=== PATIENT | male | born 1955 | race Caucasian/White ===

== ENCOUNTER 2018-07-28 14:11 | Emergency (ER) | payer BC, SELFPAY ==
[2018-07-28 14:34] VITALS: BP 169/107; PULSE 78; RESP 16; TEMP 36.6; O2SAT 97
[2018-07-28 14:38] LABS: Bilirubin Negative (Negative); Blood Trace-lysed (Negative); Clarity Clear; Glucose Negative (Negative); Ketones Negative (Negative); Leukocyte Esterase Negative (Negative); Nitrite Negative (Negative); Specific Gravity 1.015 (1.005-1.025); Urobilinogen 0.2 EU/dL (Up TO 0.2); pH 5.5 (5-8)
--- NOTE | 2018-07-28 14:44 | DI.CT_ITS ---
SYMPTOM/DIAGNOSIS: RT FLANK AND GROIN PAIN RENAL COLIC CT: Renal colic CT was performed according to protocol. There are no priors for comparison. The lung bases are clear. Lack of IV contrast does limit evaluation of the abdominal and pelvic organs. The liver is normal in size. There are innumerable round hypodense lesions scattered throughout the liver likely reflecting cysts. The gallbladder is negative. There is no biliary ductal dilatation. The pancreas is unremarkable. The spleen is unremarkable. Incidental note is made of an accessory spleen within the hilum. There is a 3.9 cm. hypodense right adrenal mass. The left adrenal gland appears unremarkable. There is a 5 mm. stone at the right ureteropelvic junction causing mild hydronephrosis. There is a non obstructing 5 mm. stone in the upper pole of the right kidney. The left kidney shows no evidence of nephrolithiasis or hydronephrosis. The urinary bladder is intact. The prostate gland appears enlarged. The abdominal aorta is of normal caliber. No significant abdominal or pelvic adenopathy, ascites or pneumoperitoneum is seen. The bowel shows no evidence of obstruction or inflammation. There is a normal appendix present. There is ankylosis of the sacroiliac joints. Degenerative changes are present throughout the spine. IMPRESSION: 1. 5 mm. right UPJ stone causing mild hydronephrosis. 2. Right nephrolithiasis. 3. 4 cm. right adrenal mass which may represent an adenoma. Follow up as clinically appropriate. 4. Multiple hypodense lesions seen within the liver, likely reflecting cysts. Follow up as clinically appropriate. 5. Prostatic hypertrophy. Urology consult may be obtained.
[2018-07-28] MEDS: Normal Saline 1,000 ML 1000 ML IV (14:50)
[2018-07-28 14:52] LABS: Bacteria Negative HPF (Negative); C & S Indicated? No; Casts Negative LPF (Negative); Crystals Negative HPF (Negative); Epithelial Cells Negative HPF (Negative); Mucus Negative (Negative); RBC 0-2 (0-2); WBC Negative HPF (0-5)
--- NOTE | 2018-07-28 14:58 | W.ED.GENAD ---
Discharge Plan Disposition Patient Disposition: HOME Condition: Improving Discharge Details Chief Complaint: Abd Prob Clinical Impression: Calculus of proximal right ureter Primary Care Provider: Alonso Ricks ED Provider: Fermin Hutchins Home Meds and New Rx's Prescriptions: New tamsulosin [Flomax] 0.4 mg capsule 0.4 mg PO DAILY Qty: 5 RF: 0 hydrocodone-acetaminophen 5-325 mg tablet 1 tab PO Q6H PRN (Reason: breakthrough pain) Qty: 5 RF: 0 Continued amlodipine 5 mg tablet 5 mg PO DAILY Qty: 90 RF: 3 ibuprofen 200 MG capsule 3 tab PO DAILY PRN RF: 0 Discharge Instructions Additional Instructions: We will have our care management team follow-up with urology to make you an appointment clinic clinic. Screen your urine for kidney stone. Continue to push fluids with liberal hydration by mouth. May use ibuprofen 800 mg every 8 hours, with food for pain. May use the provided hydrocodone/Vicodin as needed for breakthrough pain or may use Tylenol as we discussed Please take Flomax daily while having symptoms of kidney stone. This medication can cause mild lightheadedness when rising quickly from a seated position Return if you develop a fever, increasing pain, or any other acute concern Medical Decision Making 63-year-old male presents from home with abrupt onset last night of right flank pain is now radiating to his right groin. It is intermittent and colicky in nature. Is not had a fever. He arrives afebrile and improved, declines initial offer of analgesia. He is in some discomfort though and hypertensive at 169/100. Most consistent with right-sided renal colic but must exclude underlying mass, bowel obstruction, aortic pathology. Patient had IV access established, referred for laboratory testing with urinalysis as well as CT scan. Hematuria present. Unremarkable CBC chemistry is only notable for total bili of 1.4. LFTs unremarkable. Patient improved with fluids and ketorolac. CT scan reveals a right sided 4.6 mm proximal ureteral calculus. Also noted is of enlarged prostate of which the patient is aware. He is tolerating liquids and solids by mouth, pain is well controlled. Will place on Flomax. He is a good candidate for outpatient management but we will refer to Dr. Vega in urology for follow-up. Patient understands return precautions. He is provided with a small number of narcotic analgesic for breakthrough pain and consented for same prior to discharge. HPI General Mode of arrival: ambulatory. Date/Time Provider Initiated Documentation: 07/28/18 14:24. Limitations to Documentation: no limitations. Information obtained by: patient and family. History of Present Illness 63 year old M presents to the emergency department with the chief complaint of Right back and flank pain that began 1, described as moderate, Quality is described as stabbing, and is localized to the back. Patient abdomen. Patient started experiencing this hour(s) and it has been intermittent. No relieving factors improve symptom(s), No exacerbating factors reported . Patient notes no other symptoms.. Patient did receive the following treatments prior to arrival, none Related Data Home Medications Medication Instructions Recorded Confirmed ibuprofen 3 tab PO DAILY PRN 07/16/12 07/28/18 amlodipine 5 mg tablet 5 mg PO DAILY #90 tab 03/29/18 07/28/18 hydrocodone-acetaminophen 1 tab PO Q6H PRN #5 tab 07/28/18 tamsulosin [Flomax] 0.4 mg PO DAILY #5 cap 07/28/18 Previous Rx's Medication Instructions Recorded amlodipine 5 mg tablet 5 mg PO DAILY #90 tab 03/29/18 hydrocodone-acetaminophen 1 tab PO Q6H PRN #5 tab 07/28/18 tamsulosin [Flomax] 0.4 mg PO DAILY #5 cap 07/28/18 Allergies Allergy/AdvReac Type Severity Reaction Status Date / Time Penicillins Allergy Intermediate HIVES Unverified 07/28/18 14:38 General Stated Complaint: Abd Prob NOLVIA: 3 Review of Systems Review of Systems Denies fall or injury. No significant change to urine. No fever or vomiting 6 systems reviewed and otherwise negative [facility] Surgical History Arthroplasty of knee Colonoscopy - IV Sedation (02/26/15) Colonoscopy - MAC Vasectomy Family History Mother Essential hypertension Heart disease Hyperlipidemia Myocardial infarction Asthma Father Asthma Sister No problems noted. Brother No problems noted. Sister No problems noted. Brother No problems noted. Son No problems noted. Daughter No problems noted. Daughter No problems noted. Daughter No problems noted. Social History Smoking/Tobacco Use Status: Never Second Hand Exposure: Yes Alcohol Intake: current Alcohol Intake frequency: 0-2 drinks per day Alcohol type: wine Drug use: Never Substance use type: does not use Household members: spouse Duration: 30-45 minutes/day Frequency: 3-4 times per week Lynn/Mormon: No preference Special lynn needs: No Exam Narrative Exam Narrative: GEN: awake, alert, oriented 3. Pleasant, well groomed, interactive. HEAD: Normocephalic, atraumatic ENT: Mucous membranes moist, oropharynx unremarkable, External ear exam unremarkable EYES: PERRL, EOMI NECK: Full ROM, no MARY, no menigismus CHEST/RESP: Nontender, clear to auscultation bilateral, no wheeze/rhonchi/rales CARDIOVASCULAR: RRR, no murmur, rub mina. 2+ Rad pulse bilateral ABDOMEN: Soft, minimally tender right upper and mid abdomen to palpation without rebound or guarding, no mass. +Bowel sounds EXT: Full ROM, no edema, no rash Neuro: Grossly normal neurologic exam, conversant, interactive. Psych: Speech fluent, thoughts congruent, affect normal Course Vital Signs Temperature 36.6 C 07/28/18 14:34 Pulse 78 07/28/18 14:34 Respiratory Rate 16 07/28/18 14:34 Blood Pressure 169/107 H 07/28/18 14:34 Pulse Oximetry 97 07/28/18 14:34 Temperature 36.6 C 07/28/18 14:34 Temperature Source Skin 07/28/18 14:34 Pulse 78 07/28/18 14:34 Respiratory Rate 16 07/28/18 14:34 Respiratory Effort Non-Labored 07/28/18 14:34 Blood Pressure 169/107 H 07/28/18 14:34 Blood Pressure Position Sitting 07/28/18 14:34 Pulse Oximetry 97 07/28/18 14:34 Oxygen Delivery Method Room Air 07/28/18 14:34 Oxygen Flow Rate 0 07/28/18 14:34 Pain Level 5 07/28/18 14:34 Lab/Test Results Lab/Test Results: Laboratory Tests Range/Units 07/28/18 14:25 Urine Color (Yellow) Yellow Urine Clarity Clear Urine pH (5-8) 5.5 Ur Specific [place] (1.005-1.025) 1.015 Urine Protein (Negative) mg/dL Negative Urine Ketones (Negative) mg/dL Negative Urine Blood (Negative) Trace-lysed H Urine Nitrite (Negative) Negative Urine Bilirubin (Negative) Negative Urine Urobilinogen (Up TO 0.2) EU/dL 0.2 Ur Leukocyte Esterase (Negative) Negative Urine RBC (0-2) 0-2 Urine WBC (0-5) HPF Negative Ur Epithelial Cells (Negative) HPF Negative Urine Crystals (Negative) HPF Negative Urine Bacteria (Negative) HPF Negative Urine Casts (Negative) LPF Negative Urine Mucus (Negative) Negative Ur Culture Indicated? No Urine Glucose (Negative) mg/dL Negative
[2018-07-28 15:10] LABS: Abs Immature Grans 0.01 k/cumm (0.0-0.09); Absolute Basophil Count 0.02 k/cumm (0.0-0.2); Absolute Eosinophil Count 0.04 k/cumm (0.0-0.7); Absolute Lymphocyte Count 0.58 k/cumm (1.2-3.4); Absolute Monocyte Count 0.37 k/cumm (0.11-0.7); Absolute Neutrophil Count 5.36 k/cumm (1.2-6.7); Basophils % 0.3; Eosinophils % 0.6; HCT 44.4 % (40.0-50.0); HGB 15.9 g/dL (13.5-17.5); Immature Grans % 0.2; Lymphocytes % 9.1; Mean Corp. HGB Concentration 35.8 g/dL (32.0-36.0); Mean Corpuscular Hemoglobin 31.1 pg (27.0-33.0); Mean Corpuscular Volume 86.9 fL (80-95); Mean Platelet Volume 9.2 fL (8.0-11.0); Monocytes % 5.8; Platelet Count 172 x1000/uL (130-400); RBC 5.11 m/cumm (4.50-6.00); RBC Distribution Width 12.9 % (11.8-14.1); White Blood Cell Count 6.38 k/cumm (4.4-10.8)
[2018-07-28 15:20] LABS: ALT 44 U/L (12-78); AST 20 U/L (15-37); Alkaline Phosphatase 47 U/L (46-116); Anion Gap 11.8 mmol/L (3-11); BUN 16 mg/dL (7-18); Bilirubin, Total 1.4 mg/dL (0.2-1.0); CO2 26.2 mmol/L (21.0-32.0); CREATININE 1.04 mg/dL (0.70-1.30); Calcium 8.9 mg/dL (8.5-10.1); Chloride 102 mmol/L (98-107); Glucose 113 mg/dL (70-100); Potassium 3.9 mmol/L (3.5-5.1); Sodium 140 mmol/L (136-145); Total Protein 7.3 g/dL (6.4-8.2)
--- NOTE | 2018-07-28 15:48 | DI.VRAD_ITS ---
EXAM: CT Abdomen and Pelvis Without Contrast EXAM DATE/TIME: 07/28/2018 2:45 PM CLINICAL HISTORY: 63 years old, male; Signs and symptoms; Other: Right flank and groin pain TECHNIQUE: Imaging protocol: Axial computed tomography images of the abdomen and pelvis without contrast. Coronal and sagittal reformatted images were created and reviewed. Radiation optimization: All CT scans at this facility use at least one of these dose optimization techniques: automated exposure control; mA and/or kV adjustment per patient size (includes targeted exams where dose is matched to clinical indication); or iterative reconstruction. COMPARISON: No relevant prior studies available. FINDINGS: Lower thorax: No acute findings. ABDOMEN: Liver: Multiple hepatic cysts. Largest 2.2 cm Gallbladder and bile ducts: Normal. No calcified stones. No ductal dilation. Pancreas: Normal. No ductal dilation. Spleen: Normal. No splenomegaly. Adrenals: Right adrenal adenoma 3.4 cm Kidneys and ureters: 4.6 millimeter proximal RIGHT ureteral calculus causes dilatation of the RIGHT ureter, and RIGHT collecting system. The RIGHT kidney is edematous . Nonobstructing right renal calculus Stomach and bowel: Normal. No obstruction. No mucosal thickening. Appendix: No evidence of appendicitis. PELVIS: Bladder: Unremarkable as visualized. Reproductive: The prostate is enlarged, greater than 6 cm. Recommend urology consult. ABDOMEN and PELVIS: Intraperitoneal space: Normal. No free air. No significant fluid collection. Bones/joints: No acute fracture. No dislocation. Soft tissues: Unremarkable. Vasculature: Normal. No abdominal aortic aneurysm. Lymph nodes: Normal. No enlarged lymph nodes. IMPRESSION: 1. 4.6 millimeter proximal RIGHT ureteral calculus causes dilatation of the RIGHT ureter, and RIGHT collecting system. The RIGHT kidney is edematous . 2. The prostate is enlarged, greater than 6 cm. Recommend urology consult. Dictated and Authenticated by: Serene Friend MD. Ordering:WINSTON Christensen MD
[2018-07-28] MEDS: Ketorolac 30 MG/ML VIAL IVP (15:54)
[2018-07-28] MEDS: Tamsulosin 0.4 MG CAPCR PO (15:54)
[2018-07-28 16:24] VITALS: BP 158/98; PULSE 75; RESP 16; TEMP 36.6; O2SAT 99
--- NOTE | 2018-07-29 09:51 | PDOC.ERCMPRO ---
Care Management Progress Note 07/29-Dr. Hutchins requested assistance with a Urology f/u for R proximal kidney stone. Referral faxed to [facility] this am.
== END 2018-07-28 16:25 | disposition home or self-care (01) ==
PROVIDERS: Emergency Provider Emergency Medicine; PCP Emergency Medicine
DX: N20.1 Calculus of ureter (principal); I10 Essential (primary) hypertension
CPT/HCPCS: 36415; 80053; 96361; 96374; 99284; 74176; 81003; 81015; 85025; J1885

== ENCOUNTER 2018-08-26 01:00 | Outpatient (CLI) | payer BC, SELFPAY ==
--- NOTE | 2018-08-26 14:50 | DI.US_ITS ---
SYMPTOMS/DIAGNOSIS: MONITORING HYDRONEPHROSIS AND KIDNEY STONES, RIGHT SIDE, N13.30, N20.0 RENAL ULTRASOUND: The kidneys are normal in size and shape. There is a suspected right mid pole renal calcification. No evidence of hydronephrosis on either side. No renal mass seen. Urinary bladder shows prevoid and postvoid bladder volume 191 cc and 18 cc, respectively. The prostate volume estimated at 54 cc. CONCLUSION: No evidence of obstruction. Presumed right mid pole renal nonobstructing calculus.
== END 2018-08-26 01:20 ==
PROVIDERS: PCP Emergency Medicine; Visit Provider Nurse Practitioner Gerontology
DX: N13.30 Unspecified hydronephrosis (principal); N20.0 Calculus of kidney
CPT/HCPCS: 76770

== ENCOUNTER 2019-01-15 07:59 | Outpatient (CLI) | payer OTHER, SELFPAY ==
[2019-01-17 11:35] LABS: Renin Activity, Plasma <0.6 ng/mL/h
[2019-01-17 12:09] LABS: Metanephrine, Free <0.20 nmol/L (<0.50); Normetanephrine, Free 0.31 nmol/L (<0.90)
== END 2019-01-15 08:19 ==
PROVIDERS: PCP Emergency Medicine; Visit Provider Internal Medicine Endocrinology, Diabetes & Metabolism
DX: E27.8 Other specified disorders of adrenal gland (principal)
CPT/HCPCS: 36415; 82533; 82088; 83835; 84244

== ENCOUNTER 2019-05-07 15:36 | Outpatient (CLI) | payer OTHER, SELFPAY ==
--- NOTE | 2019-05-07 14:49 | DI.RAD_ITS ---
EXAM: XR ABDOMEN FLAT PLATE INDICATION: MONITORING KIDNEY STONE, HX OF RENAL CALCULI, [id number]. COMPARISON: CT renal colic wo from 07/28/2018 TECHNIQUE: 2D digital imaging was performed. FINDINGS: No urinary tract calculi are identified. The bowel gas pattern is nonspecific. There are degenerati ve changes seen in the spine. IMPRESSION: No urinary tract calculi.
== END 2019-05-07 15:56 ==
PROVIDERS: PCP Emergency Medicine; Visit Provider Nurse Practitioner Gerontology
DX: Z87.442 Personal history of urinary calculi (principal)
CPT/HCPCS: 74018

== ENCOUNTER 2019-05-13 13:38 | Outpatient (REF) | payer OTHER, SELFPAY ==
[2019-05-17 18:14] LABS: Source: Passed Stone
== END 2019-05-13 13:58 ==
LOC: LBN 13:38
PROVIDERS: PCP Emergency Medicine; Visit Provider Urology
DX: N20.0 Calculus of kidney (principal)
CPT/HCPCS: 82365

== ENCOUNTER 2019-07-08 01:53 | Outpatient (CLI) | payer OTHER, SELFPAY ==
--- NOTE | 2019-07-08 08:15 | DI.US_ITS ---
EXAM: US RENAL CLINICAL HISTORY: monitor known stone,KIDNEY STONE RT, N20.0. TECHNIQUE: Mclean scale, color and spectral Doppler were used. COMPARISON: US renal from 08/26/2018 FINDINGS: Renal size in cm: Right: 9.7 left: 10.9 Echogenicity: Normal. Hydronephrosis: No. Cyst or mass: No. Nephrolithiasis: No. Other findings: None. Bladder:Normal. No bladder wall thickening. Ureteral jets: Right: Visualized and unremarkable. Left: Visualized and unremarkable. Prevoid vol:91 cc Postvoid vol:11 cc Prostate: 34 cc DOPPLER FINDINGS: Symmetric blood flow to the kidneys. IMPRESSION: No evidence of nephrolithiasis or hydronephrosis. DATA REPOSITORY:
== END 2019-07-08 02:13 ==
PROVIDERS: PCP Emergency Medicine; Visit Provider Urology
DX: N20.0 Calculus of kidney (principal)
CPT/HCPCS: 76770

== ENCOUNTER 2021-03-31 19:52 | Outpatient (REF) | payer MEDICARE, BC, SELFPAY ==
[2021-04-01 17:40] LABS: PSA, Screening 1.7 ng/mL (0.0-4.5)
== END 2021-03-31 19:53 | disposition home or self-care (01) ==
LOC: LBN 19:52
PROVIDERS: PCP Emergency Medicine; Visit Provider Emergency Medicine
DX: Z12.5 Encounter for screening for malignant neoplasm of prostate (principal); N40.0 Benign prostatic hyperplasia without lower urinary tract symptoms
CPT/HCPCS: 84153

== ENCOUNTER 2021-08-09 02:06 | Emergency (ER) | payer OTHER, SELFPAY ==
[2021-08-09 02:07] VITALS: BP 158/109; PULSE 88; RESP 16; TEMP 36.6; O2SAT 97
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
[2021-08-09 02:18] VITALS: BP 162/107; PULSE 95; RESP 16; O2SAT 100
== END 2021-08-09 02:24 | disposition home or self-care (01) ==
LOC: ER 02:13
PROVIDERS: Emergency Provider Student in an Organized Health Care Education/Training Program; PCP Nurse Practitioner Family
DX: S00.03XA Contusion of scalp, initial encounter (principal); S80.12XA Contusion of left lower leg, initial encounter; V89.2XXA Person injured in unspecified motor-vehicle accident, traffic, initial encounter; Y99.0 Civilian activity done for income or pay
CPT/HCPCS: 99282; 99283

== ENCOUNTER → 2023-01-03 01:14 | Outpatient (CLI) | payer MEDICARE, SELFPAY ==
--- NOTE | 2023-01-03 10:46 | DI.RAD_ITS ---
Exam(s) XR FOOT LT COMPLETE EXAM: XR FOOT LT COMPLETE CLINICAL HISTORY: Left foot pain,m79.672. TECHNIQUE: 2D digital imaging was performed. COMPARISON: No exams were available for comparison FINDINGS: 3 views No evidence of acute fracture nor diastasis of the Court destiny joint. MTP joints appear unremarkable. There is soft tissue swelling lateral to head of the 5th metatarsal. No radiopaque foreign body in this region and no evidence of erosion or osteomyelitis of the 5th metatarsal head proximal phalanx. Moderate size inferior calcaneal spur noted. In these 0 fight and calcification posteriorly at the i nsertional aspect of the Achilles tendon on the posterior calcaneus. IMPRESSION: Soft tissue swelling lateral to the head of the 5th metatarsal. No osseous findings at this level. No evidence of osteomyelitis DATA REPOSITORY: RADIATION DOSE DELIVERED:
== END ==
PROVIDERS: PCP Nurse Practitioner Family; Visit Provider Podiatrist
DX: M79.672 Pain in left foot (principal)
CPT/HCPCS: 73630

== ENCOUNTER → 2023-01-25 15:23 | Outpatient (CLI) | payer MEDICARE, SELFPAY ==
--- NOTE | 2023-01-25 14:20 | DI.CT_ITS ---
Exam(s) CT CHEST W EXAM: CT CHEST W CLINICAL HISTORY: Scapular mass (right), mass of skin, R22.9. TECHNIQUE: Multi planar reconstructions were performed. CONTRAST MATERIAL: Omnipaque 350; 75 cc COMPARISON: CT CT renal colic wo from 07/28/2018 FINDINGS: CHEST: LUNGS: No infiltrates nor pleural effusions nor ominous pulmonary nodules. There no findings in the trachea and mainstem bronchi. No bronchiectasis. MEDIASTINUM: There is no hilar nor mediastinal adenopathy. Visualized thyroid unremarkable. CARDIAC: Heart size is normal. There is no pericardial effusion.Diameter of the ascending thoracic a ileana is enlarged, measuring 4 cm. No dissection. Diameter of the thoracic aortic arch is upper norm al and diameter of the descending thoracic aorta is upper normal. Incidentally noted is an anatomic variant with independent origin of the left vertebral artery off the aortic arch. VISUALIZED UPPER ABDOMEN:Multiple cysts again noted throughout the liver. Right adrenal gland mass i s again noted measuring 3.4 by 2.7 cm, unchanged. Left adrenal gland remains unremarkable. OSSEOUS: No fractures. No significant osseous lesions. OTHER: There is a fat containing soft tissue mass over the posterior aspect of the chest medial to th e scapula involving the trapezius musculature. This has both fat and solid components measuring appr oximately 8 cm wide by 2.3 cm AP by 15 cm craniocaudal. There is no adjacent bone destruction in the spinous process is of the thoracic vertebrae nor in the medial aspect of the scapula. IMPRESSION: 1. No significant lung findings, pleural effusions, nor intrathoracic adenopathy 2. There is a large mixed fatty-solid mass in the posterior extra thoracic fat tissues measuring 8 cm x 15 cm x 2.3 cm within the posterior musculature interposed between the spinous process is and the medial aspect of the scapula. Cannot assume that this is a benign lipoma. If this has recently incr eased in size than 1st consideration would be to rule out malignancy. 3. Unchanged 3.4 x 2.7 cm right adrenal gland nodule which is probably an adenoma, given that it has not changed in size from 2019. RADIATION DOSE DELIVERED: 419.32mGy.cm Total DLP DATA REPOSITORY: All CT scans at this facility are submitted to the National Radiology Data Registry (NRDR) Dose Index Registry (DIR) with the [employer] (A[employer]). RADIATION OPTIMIZATION: All CT scans at this facility use at least one of these dose optimization te chniques: automated exposure control; mA and/or kV adjustment per patient size (includes targeted exa ms where dose is matched to clinical indication); or iterative reconstruction.
[2023-01-25 14:57] LABS: Estimated GFR 81.98 (mL/min/1.73m2)
[2023-01-25] MEDS: Omnipaque 350 MG/ML 100 ML BTL IJ (15:09)
[2023-01-25] MEDS: Normal Saline - Diluent 50 ML VIAL IJ (15:09)
== END ==
PROVIDERS: PCP Nurse Practitioner Family; Visit Provider Nurse Practitioner Family
DX: R22.2 Localized swelling, mass and lump, trunk (principal)
CPT/HCPCS: 71260; 82565; J3490

== ENCOUNTER → 2023-01-26 10:26 | Outpatient (BNVA) | payer MEDICARE, SELFPAY | PROVIDERS: PCP Nurse Practitioner Family; Referring Provider Nurse Practitioner Family; Visit Provider Surgery | DX: D17.21 Benign lipomatous neoplasm of skin and subcutaneous tissue of right arm | CPT/HCPCS: 10021; 99203; 99214 ==

== ENCOUNTER 2023-01-26 11:09 | Outpatient (REF) | payer MEDICARE, SELFPAY ==
--- NOTE | 2023-01-26 11:00 | SOFT_PTH ---
PATIENT: John Pang JR LOC: N U#:[id number] AGE/SX: 67/M ROOM: RE01/26/[address]: Kaylen Ernst MD : 1955 BED: DIS: 01/26/2023 SPEC #: [id number] RECD: 01/26/23 11:39 STATUS: YENIFER REQ #: [id number] JUAN: 01/26/23 11:[address]: Kaylen Ernst DEPT: Surgical Specimen RECD BY: Nidia Barajas ENTERED: 01/26/23 11:40 SP TYPE: SOFT OTHR DR: Javad Garcia, CYNTHIA Tissues: 1 - SOFT TISSUE MISC (INC. LIPOMA) Procedures: GROSS AND MICRO LEVEL 3 Comments: [id number]
== END 2023-01-26 11:10 | disposition home or self-care (01) ==
LOC: LBN 11:09
PROVIDERS: PCP Nurse Practitioner Family; Visit Provider Surgery
DX: D17.9 Benign lipomatous neoplasm, unspecified (principal)
CPT/HCPCS: 88304; 88305

== ENCOUNTER 2023-03-28 09:26 | Day surgery (SDC) | payer MEDICARE, SELFPAY ==
[2023-03-28] VITALS (11 sets, daily range): BP systolic 112–145; BP diastolic 77–107; PULSE 56–74; RESP 10–18; TEMP 36.1–36.7; O2SAT 96–99; BMI 23.8
--- NOTE | 2023-03-28 07:05 | HPE_ITS ---
Date of service: 03/28/23 Time of Service: 10:54 Assessment and Plan Assessment and plan (1) Lipoma of back: Status: Acute Assessment and plan: Mr. Pang is a pleasant 67-year-old gentleman with a mass on his right upper back. Core needle biopsy was consistent with Benign Lipoma. We discussed excision of the lipoma today. Risks, benefits and complications were reviewed with him today in same-day surgery. Complications include but are not limited to bleeding, infection, seroma, hematoma, wound dehiscence and recurrence of the lipoma. His questions were entertained and answered to his satisfaction and he wished to proceed. After conversation he had a good understanding of the procedure as well as the possible complications and felt comfortable signing the consent. Proceed with excision of lipoma of right upper back. History of Present Illness Narrative: Mr. Pang is a very pleasant 67-year-old gentleman who is here to have a Lipoma removed from his Upper back. He states that he has had some discomfort in the area especially when backpacking or when riding his bike for long periods of time. It does not usually hurt with lifting. He was doing some yoga with his when she went to touch his back and shoulder to help with oppose and she noted a mass. He did not noticed it before. He went to see his primary care physician who ordered a stat CT scan of his chest. The CT scan noted a mass with both fat and solid components measuring 8 x 15 x 2.3 cm. There is no adjacent bone destruction in the spinous process. It involves the trapezius muscle. The upper abdomen showed a right adrenal gland at 3.4 x 2.5 cm this has been there before for and is unchanged. He has multiple cysts throughout his liver. The patient has not noted any changes of the skin. Core needle biopsy confirmed a benign lipoma. He is here today to have it removed. Kayden coronel has no new complaints. they have just returned from vacation in [place]. Review of Systems Constitutional Constitutional: Denies fever(s), Denies headache(s) and Denies weight loss Eyes Eyes: Denies change in vision ENT Ears, Nose, Mouth, and Throat: Denies dysphagia, Denies headache(s) and Denies hoarseness Cardiovascular Cardiovascular: Denies chest pain, Denies irregular heart rhythm, Denies pa lpitations and Denies dyspnea Respiratory Respiratory: Denies cough and Denies dyspnea Gastrointestinal Gastrointestinal: Reports as per HPI and Denies dysphagia Genitourinary Genitourinary: Denies difficulty urinating, Denies dysuria and Denies urinary incontinence Musculoskeletal Musculoskeletal: Reports system reviewed and no additional complaints, except as documented Integumentary/Breasts Skin/Breast: Reports as per HPI Neurologic Neurologic: Reports system reviewed and no additional complaints, except as documented and Denies headache(s) Psychiatric Psychiatric: Reports system reviewed and no additional complaints, except as documented Endocrine Endocrine: Reports system reviewed and no additional complaints, except as documented and Denies palpitations Hematologic/Lymphatic Hematologic/Lymphatic: Reports system reviewed and no additional complaints, except as documented Allergic/Immunologic Allergic/Immunologic: Reports system reviewed and no additional complaints, except as documented PFSH All Active Problems Lipoma of back (Acute) Mass of skin (Acute) Benign hypertension (Acute 05/06/13) Enlarged prostate on rectal examination (Acute 11/11/14) Knee pain (Acute) left knee DJD; ACL Low back pain (Acute) Old anterior cruciate ligament disruption (Acute) right; repaired Osteoarthritis (Acute) BILATERAL KNEES Palpitations (Acute) bigeminy 12/07 EKG PVC's without symptoms Tinnitus, left (Acute 11/11/14) Adrenal mass (Acute) White coat syndrome with diagnosis of hypertension (Acute) Mass of foot (Acute) Tailor's bunion of left foot (Acute) Achilles tendon contracture, bilateral (Acute) Capsulitis of left foot (Acute) Medical History Kidney stone on right side Surgical History History of bunionectomy left toe S/P reconstruction of ligament of knee ACL, MCL, and meniscus. ~1974 H/O arthroscopy of right knee Vasectomy Colonoscopy - MAC 2005-neg Colonoscopy - IV Sedation (02/26/15) DR.TERRY ADRIAN Family History Mother , AGE 86 Essential hypertension Heart disease Hyperlipidemia Myocardial infarction Asthma Father , age 88 Asthma Sister No problems noted. Brother No problems noted. Sister No problems noted. Brother No problems noted. Son No problems noted. Daughter No problems noted. Daughter No problems noted. Daughter No problems noted. Social History Smoking/Tobacco Use Status: Never Second Hand Exposure: Yes Smoking risk assessment performed?: Yes Alcohol Intake: current Alcohol Intake frequency: a few times a week Alcohol type: wine Drug use: Occasionally Substance use type: marijuana Household members: spouse Housing: house Communication Needs: Corrective Lenses Do you need help understanding health information?: Never Pets and animals: Yes Pets and animals: cat(s) Sexually active: Yes Do you think of yourself as: straight/heterosexual Current gender identity: male What is your relationship status?: How often do you talk on the phone with friends or family?: once per week How often do you get together with friends or relatives?: once per week Do you belong to any clubs or organized social groups?: no Panel score (0-1 are the most socially isolated patients): 1 What type of physical activity do you participate in: walking, aerobic and bicycling Duration: 15-30 minutes/day Frequency: 3-4 times per week Seatbelt use: always Helmet use: Yes Helmet use: always Drive 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 Do you feel safe at home: Yes Do you feel safe in your relationship?: Yes Victim of physical abuse: No Victim of emotional abuse: No Victim of sexual abuse: No Would you like helpful sources: No Meds Allergies and Home Medications Allergies Allergy/AdvReac Type Severity Reaction Status Date / Time Penicillins Allergy Intermediate HIVES Verified 03/28/23 09:46 Home Medications Medication Instructions Recorded Confirmed Type amlodipine 5 mg tablet 5 mg PO DAILY #90 tabs 02/14/23 03/28/23 Rx Exam Const General: cooperative, comfortable and no acute distress Orientation: alert and oriented x3 HENMT Head: normocephalic and atraumatic Eyes Pupils: PERRL Resp Effort & Inspection: normal respiratory effort Auscultation: clear to auscultation bilaterally Cardio Rate: regular rate Rhythm: regular rhythm Heart Sounds: no gallops, no murmurs and no rubs GI Inspection: normal to inspection Palpation: soft, no hepatosplenomegaly, no hernias and nontender Auscultation: normal bowel sounds General: deferred Skin Other: Soft mass in the Right upper back Time Spent Time spent with Patient: <40 minutes Time was spent: counseling the patient
--- NOTE | 2023-03-28 07:11 | ROE_ITS ---
Date of service: 03/28/23 Time of Service: 13:30 Operative Note Operative Note DATE OF PROCEDURE: 03/28/23 PRE-OP DIAGNOSIS: Lipoma Right Upper back POST-OP DIAGNOSIS: same PROCEDURE: Excision of lipoma and CARI drain placement SURGEON: Kaylen Ernst SALT MINER: Rohini Calle ANESTHESIA TYPE: Local By Surgeon and General LMA/ETT Refer to Anesthesia Record PATHOLOGY: other (lipoma) COMPLICATIONS: None Patient was transported to: PACU Patient's condition: stable Indications: Mr. Pang is a pleasant 67-year-old gentleman with a mass on his right upper back. Core needle biopsy was consistent with Benign Lipoma. We discussed excision of the lipoma today. Risks, benefits and complications were reviewed with him today in same-day surgery. Complications include but are not limited to bleeding, infection, seroma, hematoma, wound dehiscence and recurrence of the lipoma. His questions were entertained and answered to his satisfaction and he wished to proceed. After conversation he had a good understanding of the procedure as well as the possible complications and felt comfortable signing the consent. Findings: Part of the lipoma was sitting on top of the scapula and part of it was draping over the spinous processes. Part of it was intertwined with the Rhomboid major muscle. Procedure Description: After informed consent was obtained in same-day surgery and the lipoma was marked, the patient was taken to come to the operating room and placed in a supine position on the table. He was then placed under general anesthesia and an LMA was placed without difficulty. The patient was then positioned in a left lateral position with a beanbag underneath his hips and lower back to keep him in that position. Pillows were placed underneath his legs, left axilla was cushioned with a gel pad and his arms were placed on a folded pillow as well. When patient was in a good position and we made sure that there were no pressure points his upper right back past the midline was prepped and draped in a sterile surgical fashion. At this point a timeout was done. The patient's name, date of , procedure to be done, location, allergies to medications, prophylactic antibiotic were reviewed. Fire risk was assessed. Next quarter percent Marcaine mixed with Exparel was injected into the dermis over the palpable lipoma. An incision was made with a 10 blade down to the subcutaneous tissue. Bleeding was controlled using cautery. Cautery was then used to go down through a thin layer of subcutaneous tissue until the lipoma was identified. The trapezius muscle had to be cut in order to get down to the most inferior portion and deepest portion of the lipoma. The lipoma sat on top of the scapula and ran along the spinous process. This part of the lipoma was well-circumscribed and in a capsule. I was able to remove it without much difficulty. I then got to the more superior portion of the lipoma and this unfortunately was very lobulated and intertwined with his trapezius and part of the rhomboid muscles. I was able to tease out most of the lipoma from the muscle. Some of the rhomboids were cut with cautery in order to be able to remove the lipoma. It took about 40 minutes to dissect the entire lipoma out. Once it was removed it was sent to pathology. The lipoma measured 15 x 10 x 2.5 cm. Next the wound was irrigated with some normal saline. Bleeding from the muscle was identified and this was suture-ligated with 2-0 silk. Small bleeders from the muscle or skin were cauterized. Once the area was dry 6 g of Luis were placed into the cavity. Because of the size of the cavity the patient is at high risk of developing a seroma or hematoma so a 10 [place] CARI drain was placed by making a small incision inferiorly and passing the drain through that. It was cut to size and then laid into the cavity. The subcutaneous tissue was then closed with 2-0 Vicryl interrupted sutures followed by another layer of 3-0 Vicryl interrupted sutures. The dermis was closed with 3-0 Prolene interrupted sutures. Mastisol and Steri-Strips were applied over the sutures in order for them to not get caught on his shirts. The drain was secured in place with 2-0 nylon. The skin was then cleaned and dried and a dressing was applied. Instrument, needle and sponge counts were correct at the end of the case. The patient was woken up placed back onto his back extubated and taken back to recovery in stable condition. There were no immediate complications.
--- NOTE | 2023-03-28 07:13 | PDOC.DSDIS_ITS ---
Date of service: 03/28/23 Time of Service: 15:14 Discharge Plan Disposition Patient Disposition: Home Condition: Stable Discharge Details Reason For Visit: lipoma of back Attending Provider: Kaylen Ernst Primary Care Provider: Javad Garcia Home Meds and New Rx's Prescriptions: New hydrocodone-acetaminophen 5-325 mg tablet 1 tab PO Q6H PRNQty: 14 0RF Continued amlodipine 5 mg tablet 5 mg PO DAILY Qty: 90 3RF Discharge Instructions Instructions: Carlin-Ellison Drain Care (GEN) Additional Instructions: Activity at Home after surgery: 1. Make sure you walk at least 4 times per day 2. You should be able to climb a flight of stairs 3. No driving while in pain or taking pain medications 4. No strenuous activity or heavy lifting for 2 weeks Diet, Nutrition, & wound healin. Avoid alcohol until after you are recovered from your surgery 2. Make sure to eat plenty of lean protein (meat, fish, eggs, cottage cheese, beans) 3. Eat a variety of fruits and vegetables. Eat plenty of high fiber foods to avoid constipation. 4. Drink plenty of liquids to stay hydrated and avoid constipation Pain Medications: 1. Tylenol 650mg every 6 hours as needed and Ibuprofen 600 mg every 6 hours as needed. You may alternate between the 2 medications every 3 hours 2. If a narcotic has been prescribed take as directed only for breakthrough pain For Constipation: 1. Take Milk of Magnesia or MiraLax as needed for constipation Other: 1. You may shower daily. Do not scrub the incisions 2. Do not soak the incisions for 1 week 3. You may alternate ice and heat as needed for pain and swelling 4. Please drain the CARI drain daily and as needed and record the drainage. Wound Care: 1. Keep the incisions clean and dry Please call our office if you develop: 1. Fevers >101.5 2. Nausea or Vomiting 3. Worsening pain 4. Redness and thick discharge from the wounds If after hours please call the Hospital at and ask to speak to the on-call surgeon Dr. Ernst's Cell phone: . If I do not answer your call within 30 minutes please call the hospital and have the nutrition services worker physician paged. I may be in a zone. Referrals: Kaylen Ernst MD [ [facility] STAFF PHYSICIAN] - 04/02/23 1:30 pm Activity:: as above Shower/Bathe:: 24 hours Diet:: As Tolerated Discharge Orders Discharge Orders: Discharge Order (Routine); Ordered 03/28/23 Ordered By: Kaylen Ernst DS: Diagnosis Discharge Diagnosis (1) Lipoma of back: Status: Acute Asessment and Plan: The patient is doing well post-op from excision of large lipoma surgery.? He is having no nausea or vomiting. he is tolerating liquids and a snack. The pt is not having any chest pain or SOB.? His pain is adequately controlled. ?HEENT:? no eye pain/drainage/redness/swelling. Mild sore throat ?Cardio- NSR, no chest pain, BP stable- see VS record ?Pulm: no sob or productive cough. No hemoptysis ?Incision- dressing is c/d/i w/ no excessive bleeding or drainage ?I discussed with the patient the findings at the time of surgery and the patient?s progress. ?We reviewed expectations at home; what the patient could expect for recovery time, and in the post-operative period.? We discussed the importance of walking to avoid blood clots and pneumonia.? We discussed and reviewed the patient's post-operative wound care and dressing needs.?? We reviewed their step-shin pain management plan, Rx called to the pharmacy of their choice.? We reviewed activity and limitations-see discharge instructions. We reviewed warning signs, and when to seek medical attention- see d/c instructions.?? Patient was given a postoperative follow-up appointment. Patient verbalized understanding of their postoperative instructions, how do to take care of themselves and their incision, and the pain management plan. Please see discharge instructions.?
[2023-03-28] MEDS: Lactated Ringers 1,000 ML 80 ML IV (10:00)
[2023-03-28] MEDS: Celecoxib 200 MG CAP PO (10:04)
[2023-03-28] MEDS: Gabapentin 300 MG CAP 600 MG PO (10:05)
[2023-03-28] MEDS: Acetaminophen 500 MG TAB 1000 MG PO (10:05)
--- NOTE | 2023-03-28 10:32 | W.ANESPRE ---
General Info Date of Service Date Performed: 03/28/23 Height: 5 ft 10 in Weight: 75.5 kg Body Mass Index (BMI): 23.8 Surgical Procedure: Operation Date: 03/28/23 11:25 Proposed Procedure Side Surgeon p Excision Lipoma Upper Back Right Kaylen Ernst MD Meds Allergies and Home Medications Allergies Allergy/AdvReac Type Severity Reaction Status Date / Time Penicillins Allergy Intermediate HIVES Verified 03/28/23 09:46 Home Medication Medication Instructions Recorded amlodipine 5 mg tablet 5 mg PO DAILY #90 tabs 02/14/23 Current Visit Medications: Current Medications Generic Name Dose Route Start Last Admin Trade Name Freq PRN Reason Stop Dose Admin Acetaminophen 1,000 mg 03/28/23 06:00 03/28/23 10:05 Acetaminophen 500 Mg Tab PO 04/07/23 16:00 1,000 mg PREOP WILLAM Administration Celecoxib 200 mg 03/28/23 06:00 03/28/23 10:04 Celecoxib 200 Mg Cap PO 03/28/23 16:00 200 mg PREOP WILLAM Administration Gabapentin 600 mg 03/28/23 06:00 03/28/23 10:05 Gabapentin 300 Mg Cap PO 03/28/23 16:00 600 mg PREOP WILLAM Administration Ringer's Solution 1,000 mls @ 80 mls/hr 03/28/23 06:00 03/28/23 10:00 IV 04/26/23 23:59 80 mls/hr INFUSION WILLAM Administration Cefazolin Sodium/Dextrose 2 gm in 50 mls @ 100 mls/hr 03/28/23 06:00 Ancef Duplex IVPB 03/28/23 16:00 PREOP WILLAM Ondansetron HCl 4 mg/ Sodium 52 mls @ 200 mls/hr 03/28/23 07:16 Chloride IVPB 04/27/23 07:15 Q6H PRN PRN IV Miscellaneous Supplies 1 each 03/28/23 06:00 Iv Access IV 04/26/23 23:59 DIRECTED WILLAM Sodium Chloride 0 ml 03/28/23 06:00 Normal Saline Flush 10 Ml Syr IV 04/26/23 23:59 PRN PRN Sodium Chloride 0 ml 03/28/23 06:00 Normal Saline 10 Ml Vial IJ 04/26/23 23:59 DIRECTED PRN Sterile Water 0 ml 03/28/23 06:00 Water,Injection,Sterile 10 Ml Vial IJ 04/26/23 23:59 DIRECTED PRN Tramadol HCl 50 mg 03/28/23 07:16 Tramadol 50 Mg Tab PO 04/27/23 07:15 Q6H PRN PRN Pain PFSH Active Problems Active Problems: Problem Status Onset Code Lipoma of back D17.1 Mass of skin R22.9 Benign hypertension 05/06/13 I10 Enlarged prostate on rectal examination 11/11/14 N40.0 Knee pain M25.569 Low back pain M54.5 Old anterior cruciate ligament disruption M23.50 Osteoarthritis M19.90 Palpitations R00.2 Tinnitus, left 11/11/14 H93.12 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 ~1974 H/O arthroscopy of right knee Vasectomy Colonoscopy - MAC 2005-neg Colonoscopy - IV Sedation (02/26/15) DR.TERRY ADRIAN Tobacco Smoking/Tobacco Use Status: Never Passive smoking exposure: Yes Second hand exposure: Yes Alcohol Alcohol Intake: current Alcohol intake frequency: a few times a week Alcohol type: wine Substance Use Substance use: Occasionally Substance use type: marijuana Vital Signs and Lab Results Vital Signs Most Recent Vital Signs in EMR: Most Recent Vital Signs Temp Pulse Resp BP Pulse Ox 36.3 C L 73 18 145/107 H 99 03/28/23 09:30 03/28/23 09:30 03/28/23 09:30 03/28/23 09:30 03/28/23 09:30 Lab Results Blood Type / Crossmatch: No Data to Display Complete Blood Count: No Data to Display Complete Metabolic Panel: No Data to Display Liver Function Panel: No Data to Display Coagulation Panel: No Data to Display Cardiac Panel: No Data to Display Arterial Blood Gas: No Data to Display Venous Blood Gas: No Data to Display Pancreas Panel: No Data to Display Thyroid Panel: No Data to Display Infectious Disease: No Data to Display Blood Cultures: No Data to Display Toxicology Panel: No Data to Display Anesthesia Assessment and Plan Anesthesia History Personal History: No History of Anesthesia Complications Family History: No Family History of Anesthesia Complications Exercise Tolerance Exercise Tolerance: Metabolic Equivalents>4 Pertinent Negatives Pertinent Negatives: No Symptoms of GERD Cardiac & Pulmonary Exam Cardiac Exam: Normal S1/S2 Heart Sounds Pulmonary Exam: Clear Bilateral Breath Sounds Implantable Cardiac Device Does patient have a Pacemaker or an ICD?: No Airway Exam Known Difficult Airway: No Mallampati Class: 1 Mouth Opening: Normal (> 3cm) Thyromental Distance: Greater than 3 cm Neck Range of Motion: Full ROM Neck Circumference: Normal Teeth Condition: Normal Dentition ASA Classification ASA Score: ASA 2 Emergency Case?: No NPO Status NPO Status: NPO Clears >2 hours, Solids >8 hours Anesthesia Plan Resuscitation Status: Full Code Anesthesia Technique: General Anesthesia Airway Planned: Endotracheal Tube Monitors Used: Standard Monitors Preoperative Comments:: lateral positioning. Discussed with Dr. Ernst. Plan is GETA.
[2023-03-28] MEDS: ceFAZolin 2 GM/50 ML BAG IVPB (11:51)
[2023-03-28] MEDS: Bupivacaine LIPOSOME/PF 133 MG/10 ML VIAL IJ (12:46)
[2023-03-28] MEDS: Bupivacaine 0.25% Pres-Free 30 ML VIAL (12:46)
--- NOTE | 2023-03-28 12:55 | SOFT_PTH ---
PATIENT: John Pang JR LOC: [facility] U#:[id number] AGE/SX: 68/M ROOM: RE03/28/[address]: Kaylen Ernst MD : 1955 BED: DIS: 03/28/2023 SPEC #: [id number] RECD: 03/28/23 18:29 STATUS: YENIFER REKimmy #: [id number] JUAN: 03/28/23 12:[address]: Kaylen Ernst DEPT: Surgical Specimen RECD BY: Nidia Barajas ENTERED: 03/28/23 18:30 SP TYPE: SOFT OTHR DR: Javad Garcia, CYNTHIA Tissues: 1 - SOFT TISSUE MISC (INC. LIPOMA) Procedures: GROSS AND MICRO LEVEL 3 Comments: [id number]
[2023-03-28] MEDS: Normal Saline 10 ML VIAL IJ (14:16)
[2023-03-28] MEDS: HYDROmorphone 2 MG/ML SYR IVP ×2 (14:16→14:27)
--- NOTE | 2023-03-28 15:00 | W.ANESPOSTOP ---
Postoperative Evaluation Date, Time and Location Date Performed: 03/28/23 Time Performed: 15:00 Patient Location: Day Surgery Unit Vital Signs Most Recent Imported Vital Signs: Most Recent Vital Signs Temp Pulse Resp BP Pulse Ox 36.1 C L 61 18 120/83 97 03/28/23 14:50 03/28/23 14:50 03/28/23 14:50 03/28/23 14:50 03/28/23 14:50 Pain Score Most Recent Pain Score: Most Recent Pain Score Pain Level 1 03/28/23 14:50 Assessment Mental Status: Awake (Alert & Oriented to Patient Baseline) Airway and Respiratory Function: Patent airway with normal (patient baseline) respiratory exam Cardiovascular Function: Hemodynamically Stable Hydration Status: Adequately Hydrated Nausea & Vomiting: No Nausea or Vomiting Pain: Pain is tolerable per patient Peripheral Nerve Block: Patient did not receive a nerve block
== END 2023-03-28 09:27 | disposition home or self-care (01) ==
LOC: SUR 09:26
PROVIDERS: PCP Nurse Practitioner Family; Visit Provider Surgery
PROC: (CPT 21933; principal; 2023-03-28 11:15)
DX: D17.9 Benign lipomatous neoplasm, unspecified (principal); I10 Essential (primary) hypertension
CPT/HCPCS: 21933; 88304; J0690; J1100; J1170; J1885; J2001; J2405; J2704

== ENCOUNTER → 2023-04-02 13:22 | Outpatient (BNVA) | payer MEDICARE, SELFPAY | PROVIDERS: PCP Nurse Practitioner Family; Referring Provider Nurse Practitioner Family; Visit Provider Surgery | DX: Z48.817 Encounter for surgical aftercare following surgery on the skin and subcutaneous tissue (principal) ==

== ENCOUNTER → 2023-04-09 07:57 | Outpatient (BNVA) | payer MEDICARE, SELFPAY | PROVIDERS: PCP Nurse Practitioner Family; Referring Provider Nurse Practitioner Family; Visit Provider Surgery | DX: Z48.817 Encounter for surgical aftercare following surgery on the skin and subcutaneous tissue (principal) ==

== ENCOUNTER 2023-05-23 13:10 | Outpatient (CLI) | payer MEDICARE, SELFPAY ==
[2023-05-23 10:46] LABS: Calculated LDL 86 mg/dL (<100); Cholesterol 171 mg/dL (<200); HDL Cholesterol 75 mg/dL (40-60); Triglyceride 51 mg/dL (<150)
== END 2023-05-23 13:11 | disposition home or self-care (01) ==
LOC: LBO 13:11
PROVIDERS: PCP Nurse Practitioner Family; Visit Provider Nurse Practitioner Family
DX: I10 Essential (primary) hypertension (principal); Z13.6 Encounter for screening for cardiovascular disorders
CPT/HCPCS: 36415; 80061

== ENCOUNTER 2024-07-29 11:21 | Outpatient (CLI) | payer MEDICARE, SELFPAY ==
--- NOTE | 2024-07-29 08:45 | DI.RAD_ITS ---
Exam(s) XR SHOULDER LT COMPLETE 2+V EXAM: XR SHOULDER LT COMPLETE 2+V CLINICAL HISTORY: LEFT SHOULDER PAIN. TECHNIQUE: 2D digital imaging was performed. Three views. COMPARISON: No exams were available for comparison FINDINGS: BONES: No acute fracture is present. No bony destructive lesion is seen. JOINTS: No dislocation present. There is widening of the AC joint which could be related to postsurg ical changes versus post traumatic AC separation. There is mild spurring at the tip the acromion and inferior AC joint. There is mild spurring at the glenoid. The glenohumeral joint space is maintain ed. SOFT TISSUE: Normal. IMPRESSION: Widening and mild degenerative changes at the AC joint. DATA REPOSITORY: RADIATION DOSE DELIVERED:
== END 2024-07-29 11:22 | disposition home or self-care (01) ==
LOC: DIORS 11:22
PROVIDERS: PCP Nurse Practitioner Family; Referring Provider Nurse Practitioner Family; Visit Provider Student in an Organized Health Care Education/Training Program
DX: M12.812 Other specific arthropathies, not elsewhere classified, left shoulder; M75.102 Unspecified rotator cuff tear or rupture of left shoulder, not specified as traumatic; I10 Essential (primary) hypertension
CPT/HCPCS: 99214; 73030

== ENCOUNTER 2024-08-19 00:08 | Outpatient (CLI) | payer MEDICARE, SELFPAY ==
--- NOTE | 2024-08-19 11:40 | DI.MRI_ITS ---
Exam(s) MR UPPER JOINT LT WO EXAM: MR UPPER JOINT LT WO CLINICAL HISTORY: ? ROTATOR CUFF TEAR,LT SHOULDER PAIN, M25.512. TECHNIQUE: Multiplanar multisequence MRI was performed. COMPARISON: Plain films 29 July 2024 FINDINGS: Exam is somewhat limited by motion. BONES: There is no fracture or contusion pattern. There degenerative changes in the humeral head. JOINTS:The acromioclavicular joint shows mild degenerative changes. The glenohumeral joint is shows a small amount of fluid. The humeral head is superiorly positioned w ith respect to the glenoid consistent with rotator cuff tear. TENDONS: Supraspinatus: Full-thickness tear with retraction to the level of the glenoid. Mild muscle atrophy. Infraspinatus: High signal and thickening in distal infraspinatus partial tear versus tendinitis. Subscapularis: The tendon is torn and retracted to the level of the glenoid. Mild muscle atrophy. Teres Minor: Unremarkable. Biceps and Holden: The long head of the biceps tendon is not visualized, presumed torn and retracted GLENOID LABRUM: Degenerative changes. No gross evidence of a tear. SOFT TISSUES: Unremarkable. BURSAE: Subacromial and subdeltoid bursae shows a small amount of fluid. IMPRESSION: Full-thickness tears with retraction of the supraspinatus, subscapularis and biceps tendons. Partial tear versus tendinitis of the infraspinatus. The teres minor is unremarkable. DATA REPOSITORY:
== END 2024-08-19 00:28 ==
LOC: DI 00:08
PROVIDERS: PCP Nurse Practitioner Family; Visit Provider Student in an Organized Health Care Education/Training Program
DX: M25.512 Pain in left shoulder (principal); M12.812 Other specific arthropathies, not elsewhere classified, left shoulder; M75.102 Unspecified rotator cuff tear or rupture of left shoulder, not specified as traumatic
CPT/HCPCS: 73221

== ENCOUNTER → 2024-08-26 09:41 | Outpatient (BNVA) | payer MEDICARE, SELFPAY | PROVIDERS: PCP Nurse Practitioner Family; Referring Provider Nurse Practitioner Family; Visit Provider Student in an Organized Health Care Education/Training Program | DX: M12.812 Other specific arthropathies, not elsewhere classified, left shoulder (principal); M75.102 Unspecified rotator cuff tear or rupture of left shoulder, not specified as traumatic | CPT/HCPCS: 99214 ==

== ENCOUNTER 2024-09-04 01:12 | Outpatient (CLI) | payer MEDICARE, SELFPAY ==
--- NOTE | 2024-09-04 07:15 | DI.CT_ITS ---
Exam(s) CT UPPER EXTREMITY LT WO EXAM: CT UPPER EXTREMITY LT WO CLINICAL HISTORY: SURGICAL PLANNING,LT ROTATOR CUFF TEAR,ROTATOR CUFF ARTHROPATHY. TECHNIQUE: Imaging Protocol: Axial computed tomography images with coronal and sagittal reformatted images were created and reviewed. COMPARISON: CR XR SHOULDER LT COMPLETE 2+V from 07/29/2024 MR MR UPPER JOINT LT WO from 08/19/2024 FINDINGS: Bones: There are degenerative changes seen at the acromioclavicular and the glenohumeral joint. The re is superior subluxation of the humeral head relative to the glenoid suggesting large rotator cuff tear. Degenerative changes are seen at the greater tuberosity. There is a tiny density inferior to the acromion which may represent a loose body. No cellulitic or osteomyelitic changes are identified . There are degenerative changes seen in the visualized portions of the cervical and thoracic spine. No lytic or sclerotic lesions are identified. Soft Tissues: Normal. IMPRESSION: Degenerative changes of the shoulder as described above. RADIATION DOSE DELIVERED: 152.56mGy.cm Total DLP 152.56mGy.cm Total DLP DATA REPOSITORY: All CT scans at this facility are submitted to the National Radiology Data Registry (NRDR) Dose Index Registry (DIR) with the [employer] ([employer]). RADIATION OPTIMIZATION: All CT scans at this facility use at least one of these dose optimization te chniques: automated exposure control; mA and/or kV adjustment per patient size (includes targeted exa ms where dose is matched to clinical indication); or iterative reconstruction.
== END 2024-09-04 01:32 ==
LOC: DI 01:12
PROVIDERS: PCP Nurse Practitioner Family; Visit Provider Student in an Organized Health Care Education/Training Program
DX: M12.812 Other specific arthropathies, not elsewhere classified, left shoulder
CPT/HCPCS: 73200

== ENCOUNTER → 2024-09-17 10:14 | Outpatient (BNVA) | payer MEDICARE, SELFPAY | PROVIDERS: PCP Nurse Practitioner Family; Referring Provider Nurse Practitioner Family; Visit Provider Student in an Organized Health Care Education/Training Program | DX: M12.812 Other specific arthropathies, not elsewhere classified, left shoulder (principal); M75.102 Unspecified rotator cuff tear or rupture of left shoulder, not specified as traumatic | CPT/HCPCS: 99214 ==

== ENCOUNTER → 2024-10-08 08:53 | Outpatient (BNVA) | payer MEDICARE, SELFPAY | PROVIDERS: PCP Nurse Practitioner Family; Visit Provider Student in an Organized Health Care Education/Training Program | DX: M12.812 Other specific arthropathies, not elsewhere classified, left shoulder (principal); S46.212A Strain of muscle, fascia and tendon of other parts of biceps, left arm, initial encounter; X58.XXXA Exposure to other specified factors, initial encounter | CPT/HCPCS: 99214 ==

== ENCOUNTER 2024-11-06 05:59 | Day surgery (SDC) | payer MEDICARE, SELFPAY ==
[2024-11-06] VITALS (29 sets, daily range): BP systolic 95–151; BP diastolic 67–101; PULSE 58–89; RESP 10–17; TEMP 36.1–36.5; O2SAT 94–99; BMI 23.3
--- NOTE | 2024-11-06 | DI.CT_ITS ---
Exam(s) CT UPPER EXTREMITY LT WO EXAM: CT UPPER EXTREMITY LT WO CLINICAL HISTORY: ? fx s/p surgery. TECHNIQUE: Imaging Protocol: Axial computed tomography images with coronal and sagittal reformatted images were created and reviewed. COMPARISON: CT CT UPPER EXTREMITY LT WO from 09/04/2024 CR XR SHOULDER LT COMPLETE 2+V from 11/06/2024 FINDINGS: Bones: The patient is now status post left total reverse shoulder arthroplasty. The orthopedic hardware appears in good position. No lucencies are seen in or around the orthopedic hardware. Imaging around the orthopedic hardware is somewhat limited due to artifact. There is no evidence of a fracture. No cellulitic or osteomyelitic changes are identified. There are degenerative changes seen at the acromioclavicular joint. No lytic or sclerotic lesions are identified. Soft Tissues: Subcutaneous gas is seen in the soft tissues around the shoulder and proximal humerus. There is consolidation of the left lower lobe. This may represent atelectasis. Pneumonia/aspiration cannot be excluded. IMPRESSION: 1. Status post left total reverse shoulder arthroplasty. 2. Within the limits of the examination, no acute fracture is identified. 3. Subcutaneous gas seen in the soft tissues of the shoulder and upper arm consistent with recent surgery. 4. Consolidation in the left lower lobe. This may represent atelectasis. Pneumonia/aspiration cannot be excluded. Please correlate clinically. RADIATION DOSE DELIVERED: Total DLP Total DLP DATA REPOSITORY: All CT scans at this facility are submitted to the National Radiology Data Registry (NRDR) Dose Index Registry (DIR) with the [employer] ([employer]). RADIATION OPTIMIZATION: All CT scans at this facility use at least one of these dose optimization techniques: automated exposure control; mA and/or kV adjustment per patient size (includes targeted exams where dose is matched to clinical indication); or iterative reconstruction.
--- NOTE | 2024-11-06 07:00 | W.ANESPRE ---
General Info Date of Service Date Performed: 11/06/24 Height: 5 ft 10 in Weight: 74 kg Body Mass Index (BMI): 23.3 Surgical Procedure: Operation Date: 11/06/24 07:40 Proposed Procedure Side Surgeon p Shoulder Reverse Total Arthroplasty Left Bruno Heath MD Meds Allergies and Home Medications Allergies Allergy/AdvReac Type Severity Reaction Status Date / Time Penicillins Allergy Intermediate HIVES Verified 11/06/24 06:24 Home Medication ?Medication ?Instructions ?Recorded amlodipine 5 mg tablet 5 mg PO DAILY #90 tabs 01/16/24 celecoxib 200 mg capsule 200 mg PO DAILY PRN pain #90 caps 08/26/24 Current Visit Medications: Current Medications Generic Name Dose Route Start Last Admin Trade Name Freq PRN Reason Stop Dose Admin Ringer's Solution 1,000 mls @ 30 mls/hr 11/06/24 06:00 IV 11/06/24 23:59 INFUSION WILLAM Cefazolin Sodium/Dextrose 2 gm in 50 mls @ 100 mls/hr 11/06/24 06:00 Ancef Duplex IVPB 11/06/24 23:59 PREOP WILLAM Tranexamic Acid/Sodium Chloride 1,000 mg in 100 mls @ 600 mls/hr 11/06/24 06:00 IVPB 11/06/24 23:59 PREOP WILLAM IV Miscellaneous Supplies 1 each 11/06/24 06:00 Iv Access IV 11/06/24 23:59 DIRECTED WILLAM Sodium Chloride 0 ml 11/06/24 06:00 Normal Saline Flush 10 Ml Syr IV 11/06/24 23:59 PRN PRN Sodium Chloride 0 ml 11/06/24 06:00 Normal Saline 10 Ml Vial IJ 11/06/24 23:59 DIRECTED PRN Sterile Water 0 ml 11/06/24 06:00 Water,Injection,Sterile 10 Ml Vial IJ 11/06/24 23:59 DIRECTED PRN PFSH Active Problems Active Problems: Problem Status Onset Code Rupture of left proximal biceps tendon Acute S46.212A Rotator cuff tear, left Acute M75.102 Rotator cuff arthropathy of left shoulder Acute M12.812 Benign hypertension Acute 05/06/13 I10 Enlarged prostate on rectal examination Acute 11/11/14 N40.0 Knee pain Acute M25.569 Low back pain Acute M54.5 Old anterior cruciate ligament disruption Acute M23.50 Osteoarthritis Acute M19.90 Palpitations Acute R00.2 Tinnitus, left Acute 11/11/14 H93.12 Adrenal mass Acute E27.8 White coat syndrome with diagnosis of hypertension Acute I10 Mass of foot Acute R22.40 Tailor's bunion of left foot Acute M21.622 Achilles tendon contracture, bilateral Acute M67.01, M67.02 Capsulitis of left foot Acute M77.8 Medical History Medical History Lipoma of back Surgically removed Mar 28 2023 Kidney stone on right side Surgical History Surgical History H/O excision of mass lipoma of right upper back History of bunionectomy left toe S/P reconstruction of ligament of knee ACL, MCL, and meniscus. ~1974 H/O arthroscopy of right knee Vasectomy Colonoscopy - MAC 2005-neg Colonoscopy - IV Sedation (02/26/15) DR.TERRY ADRIAN Tobacco Smoking/Tobacco Use Status: Never Passive smoking exposure: Yes Second hand exposure: Yes Alcohol Alcohol Intake: current Alcohol intake frequency: 0-2 drinks per day Alcohol type: beer, wine and hard liquor Substance Use Substance use: Rarely Substance use type: marijuana Vital Signs and Lab Results Vital Signs Most Recent Vital Signs in EMR: Most Recent Vital Signs Temp Pulse Resp BP Pulse Ox 36.4 C L 69 16 151/101 H 97 11/06/24 06:05 11/06/24 06:05 11/06/24 06:05 11/06/24 06:05 11/06/24 06:05 Anesthesia Assessment and Plan Anesthesia History Personal History: No History of Anesthesia Complications Family History: No Family History of Anesthesia Complications Exercise Tolerance Exercise Tolerance: Metabolic Equivalents>4 Pertinent Negatives Pertinent Negatives: No Symptoms of GERD, No Major Cardiovascular Symptoms or Complaints, No Major Pulmonary Symptoms or Complaints and No History of CVA/TIA Cardiac & Pulmonary Exam Cardiac Exam: Normal S1/S2 Heart Sounds Pulmonary Exam: Clear Bilateral Breath Sounds Implantable Cardiac Device Does patient have a Pacemaker or an ICD?: No Airway Exam Known Difficult Airway: No Mallampati Class: 1 Mouth Opening: Normal (> 3cm) Thyromental Distance: Greater than 3 cm Neck Range of Motion: Full ROM Neck Circumference: Normal Teeth Condition: Normal Dentition ASA Classification ASA Score: ASA 2 Emergency Case?: No NPO Status NPO Status: NPO Clears >2 hours, Solids >8 hours Anesthesia Plan Resuscitation Status: Full Code Anesthesia Technique: General Anesthesia Airway Planned: Endotracheal Tube Pain Management: Surgeon and patient request nerve block Monitors Used: Standard Monitors
[2024-11-06] MEDS: Lactated Ringers 1,000 ML 30 ML IV (07:05)
--- NOTE | 2024-11-06 07:07 | PDOC.DSDIS_ITS ---
Date of service: 11/06/24 Discharge Plan Disposition Patient Disposition: Home Condition: Stable Discharge Details Attending Provider: Bruno Heath Primary Care Provider: Javad Garcia Home Meds and New Rx's Prescriptions: New aspirin 81 mg tablet,delayed release (DR/EC) 81 mg PO DAILY 7 Days Qty: 7 0RF oxycodone 5 mg tablet 5 - 10 mg PO Q4H PRN (Reason: Moderate to severe pain) Qty: 18 0RF Continued celecoxib 200 mg capsule 200 mg PO DAILY PRN (Reason: pain) Qty: 90 0RF amlodipine 5 mg tablet 5 mg PO DAILY Qty: 90 3RF Discharge Instructions Additional Instructions: Surgery: Left reverse total shoulder arthroplasty on 11/06/2024 Activity: Do not lift anything heavier than a coffee. You should keep your arm at your side in a relatively neutral position at all times except for gentle range of motion exercises, physical therapy, and essential activities. You should use the sling whenever you are out of the house. At home it is best to remove the sling and rest the arm on a pillow at your side or support the operative side with your other hand. A physical therapy prescription will be sent electronically to start in about 3 weeks. STANDARD Reverse TSA Protocol. You may take your previously prescribed celecoxib 200 mg take 1 daily for moderate discomfort Prescriptions: Aspirin 81 mg take 1 daily to prevent a blood clot for 7 days, starting tomorrow morning Oxycodone 5 mg take 1-2 every 4-6 hours as needed for severe pain You may use [id number] Tylenol (acetaminophen) as needed for mild pain. These pain medications may be taken all at once or in different combinations as needed. Also, recommend Colace (docusate) as a stool softener as surgery and pain medicine cause constipation. You may try [id number] diphenhydramine (Benadryl) 25-50 mg nightly as a sleep aid Dressings: Leave dressing in place until follow-up. Keep clean and dry at all times. No showers please. Follow-up: 10-14 days with an orthopedic physician outpatient physical therapist assistant 11/18/24 @ 9:00AM and 6-[address] Heath You may take off the leg compression stockings this evening at home. You may also leave them on a few days longer if you have a history of leg swelling or e lissa. Please call the office during business hours with any questions or concerns. Let us know right away if you develop any redness, drainage, fevers, chest pain, or trouble breathing. Do not drink alcohol or drive for at least 24 hours after anesthesia. Stand Alone Forms: Anesthesia Discharge Inst., Maged.Nerve Block Instructions, Ramirez Hernandez (DSU) Discharge Orders Discharge Orders: Discharge Order (Routine); Ordered 11/06/24 Ordered By: Sal Rosales DS: Diagnosis Discharge Diagnosis (1) Rupture of left proximal biceps tendon: Status: Acute (2) Rotator cuff tear, left: Status: Acute (3) Rotator cuff arthropathy of left shoulder: Status: Acute
--- NOTE | 2024-11-06 07:16 | ROE_ITS ---
Operative Note Operative Note PRE-OP DIAGNOSIS: Left: 1. Rotator cuff arthropathy 2. Glenohumeral arthritis 3. Proximal biceps rupture PROCEDURE: Left: 1. Reverse total shoulder arthroplasty, CPT # 94282 The biology laboratory assistant was medically required as this procedure involves retraction, pro tection of neurovascular structures, and manipulation of multiple instruments and implants at the same time, which cannot be done without a skilled biology laboratory assistant. 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 High-grade rotator cuff arthropathy and glenohumeral arthritis. Procedure Description: In the operating room, general anesthesia was induced. The patient was positioned beachchair on the operating room table. All bony prominences were well-padded. Preoperative antibiotics were administered. The shoulder was prepped and draped in the usual sterile fashion for shoulder arthroplasty. The correct patient, procedure, and side of the procedure were all verified prior to incision. The deltopectoral approach was preinjected with 0.25% bupivacaine containing epinephrine and taken to the anterior shoulder. Care was taken to bluntly dissect the interval between the deltoid and pectoralis major muscles and to identify the cephalic vein within its fat stripe. The vein was preserved and mobilized laterally. Subdeltoid space and conjoined tendon were freed of adhesions. The biceps was absent except for maybe diminutive remnant in the bicipital groove. The uppermost margin of the pectoralis major tendon was re leased from the proximal humerus. Bursitis was debrided from the superior humeral area as well as some capsulitis anteriorly while bringing the arm into external rotation and delivering the humeral head. Care was taken to avoid the axillary nerve by only working on the bone inferiorly and medially. Appropriate coagulation was achieved especially interiorly with the vein having a small branching vein tear distally, which needed to be coagulated and then the vein proper was tied off due to continued bleeding from the junction. The anatomic neck was cut using an oscillating saw over the guide with the humeral head bone brought back table in case there was a need for future bone grafting. Attention was then turned to the glenoid and retractors were placed and a circumferential release performed removing soft tissue about the glenoid rim. Care was taken inferiorly to work on bone only between 5 and 7:00 o'clock and bluntly elevate tissues inferiorly. The glenoid was sized and guidepin inserted accounting for patient version and inclination. The guidepin was advanced just through the far cortex ensuring adequate central fixation length. The one step prep glenoid reamer was then used to prepare glenoid according to snuff grinder and screener specifications. The baseplate was impacted onto the glenoid surface. The central compression screw was placed, the initial screw was just too short and did not engage the far cortex, and it was exchanged for the next size longer with excellent purchase. The central screw hat checker was used to confirm the central screw was fully seated. The locking guide was then used to drill and place appropriately lengthed inferior, anterior, and posterior screws. The [id number] reamer was used to achieve adequate peripheral reaming. A trial +8 mm glenosphere was attempted, but too large and lateralized with +4 mm being more appropriate. A final +4 mm lateralized glenosphere was applied with the school operations manager and impacted to engage the Stiles taper. It was then locked with appropriate countersinking of the setscrew. The glenosphere had good fit, appropriate positioning, and no soft tissue or bony impingement. The proximal humerus was delivered from the wound with adduction and external rotation. The humerus was sized and pin placed. Reaming and blazing were done over the pin. The stem pin punch was used through the blazer to confirm distal path and complete preparation. The final stem was impacted into place. Trialing was started with a +0 mm shell and liner. The shoulder was reduced and taken through range of motion. Trial components were built up to +4 mm liner to achieve excellent stability and tension on the deltoid and conjoined tendon. Trial shell and liner were removed. The final shell was attempted to be engaged and impacted onto the humeral stem, but despite correct labeling as large on the box and laser marking also showing large on the shell, it was clearly the wrong size and too small. Another large shell was opened, was clearly different, and looked the appropriate size. It was then impacted onto the humeral stem and final liner was clicked into place. Despite the deficient rotator cuff, there was excellent stability so a regular liner was used to optimize postoperative motion and function. The shoulder was reduced and range of motion, stability, and tension confirmed. The shoulder was copiously irrigated with Betadine and normal saline. Vancomycin powder was distributed deeply about the shoulder and through subcutaneous tissues. The deltopectoral interval was approximated with 2-0 Monocryl burying the proximal distal parts of the cephalic vein, which still had a thin small remnant between the ends although it was tied off with 0 Vicryl on either side. Subcutaneous tissue was irrigated then closed using 2-0 Monocryl in a buried interrupted fashion. Skin was closed using 3-0 Monocryl in a buried subcuticular fashion. Skin glue was applied to the incision. A silver impregn ated bandage was placed over the incision. The extremity was placed into a shoulder immobilizer. The patient awoke from anesthesia without complication and was taken to the recovery room in stable condition. Date of Procedure: 11/06/24
[2024-11-06] MEDS: ceFAZolin 2 GM/50 ML BAG IVPB (07:52)
[2024-11-06] MEDS: TRANEXAMIC ACID/SOD. CHL. 1,000 MG/100 ML BAG 600 MG IVPB (07:56)
--- NOTE | 2024-11-06 08:05 | W.ANESNERVE ---
Nerve Block Single Injection Procedure Date and Time Date Performed: 11/06/24 Procedure Start: 07:22 Location Where Procedure Performed Procedure Location: Day Surgery Unit Reason Performed: Postoperative Analgesia Requesting Provider: Bruno Heath Timeout Performed Timeout Performed: Yes Monitoring Used ECG, Blood Pressure, SpO2 and See EMR for corresponding vital signs Sterility Sterility: Hand Hygiene, Surgical Cap, Surgical Mask, Sterile Gloves and Chlorhexidine Sedation Given During Procedure Sedation Given (Indicate Dose Given): Precedex IV Dose:: 4mcg Patient Mental Status Patient Mental Status: Sedate with meaningful communication Nerve Block 1st Nerve Block: Laterality: Left Block Type: Interscalene Ultrasound Image Saved?: Yes Needle / Catheter Used: 100mm SonoPlex II Local Anesthetic Bolus (Indicate Dose Given): Lidocaine used for local infiltration of skin, Injected in 3-5ml increments after negative blood aspiration, Bupivacaine 0.5% Dose:: 7.5mL and Exparel Dose:: 7.5mL Additives (Indicate Dose Given): None Ultrasound: Sterile probe cover and gel used Nerve Stimulator: Supplement to Ultrasound use and No twitch or parasthesia noted < 0.5 mA Paresthesia: None Procedure Tolerated: No Complications and Patient tolerated well Procedure Outcome: Successful Performed By: Beverley Mandujano Supervised By: John Schulz 2nd Nerve Block: Laterality: Left Block Type: Superficial Cervical Plexus Ultrasound Image Saved?: Yes Needle / Catheter Used: 100mm SonoPlex II Local Anesthetic Bolus (Indicate Dose Given): Injected in 3-5ml increments after negative blood aspiration, Bupivacaine 0.5% Dose:: 2.5mL and Exparel Dose:: 2.5mL Additives (Indicate Dose Given): None Ultrasound: Sterile probe cover and gel used Nerve Stimulator: Supplement to Ultrasound use and No twitch or parasthesia noted < 0.5 mA Paresthesia: None Procedure Tolerated: No Complications and Patient tolerated well Procedure Outcome: Successful Performed By: Beverley Mandujano Supervised By: John Schulz
[2024-11-06] MEDS: Bupivacaine 0.25% Pres-Free W/EPI 30 ML VIAL (08:21)
[2024-11-06] MEDS: Vancomycin 1,000 MG VIAL 1000 MG (10:00)
--- NOTE | 2024-11-06 11:00 | DI.RAD_ITS ---
Exam(s) XR SHOULDER LT COMPLETE 2+V EXAM: XR SHOULDER LT COMPLETE 2+V CLINICAL HISTORY: Shoulder arthritis. TECHNIQUE: 2D digital imaging was performed of the left shoulder. Four images were obtained. Grashey and Y views were obtained. COMPARISON: CR XR SHOULDER LT COMPLETE 2+V from 07/29/[address] UPPER EXTREMITY LT WO from 09/04/2024 FINDINGS: BONES: No acute fracture is present. No bony destructive lesion is seen. JOINTS: The patient is now status post left reverse total shoulder arthroplasty. The orthopedic hardware appears in good position. No suspicious lucencies are seen around the hardware. SOFT TISSUE: Postsurgical changes are seen in the soft tissues. IMPRESSION: Status post left reverse total shoulder arthroplasty. DATA REPOSITORY: RADIATION DOSE DELIVERED:
[2024-11-06] MEDS: fentaNYL 100 MCG/2 ML VIAL IVP (11:09)
[2024-11-06] MEDS: ceFAZolin 1 GM/50 ML BAG IVPB (11:42)
--- NOTE | 2024-11-06 11:51 | W.ANESPOSTOP ---
Postoperative Evaluation Date, Time and Location Date Performed: 11/06/24 Time Performed: 11:45 Patient Location: PACU Vital Signs Most Recent Imported Vital Signs: Most Recent Vital Signs Temp Pulse Resp BP Pulse Ox 36.5 C 73 13 119/81 95 11/06/24 10:51 11/06/24 11:41 11/06/24 11:41 11/06/24 11:40 11/06/24 11:41 Pain Score Most Recent Pain Score: Most Recent Pain Score Pain Level 7 11/06/24 11:01 Assessment Mental Status: Awake (Alert & Oriented to Patient Baseline) Airway and Respiratory Function: Patent airway with normal (patient baseline) respiratory exam Cardiovascular Function: Hemodynamically Stable Hydration Status: Adequately Hydrated Nausea & Vomiting: No Nausea or Vomiting Pain: Pain is Moderate or Severe (Patient reports 6/10. Being addressed with PO tylenol. Reports pain at medial caudal border of scapula and internal to shoulder. ) Postoperative Pain Management: Pain being addressed with medication Peripheral Nerve Block: Regional nerve block not resolved at time of post operative discharge
[2024-11-06] MEDS: ACETAMINOPHEN 1,000 MG/100 ML BAG 400 MG IVPB (13:26)
[2024-11-06] MEDS: Lactobacillus Acidophilus CAP 1 CAP PO (13:53)
== END 2024-11-06 14:30 | disposition home or self-care (01) ==
PROVIDERS: PCP Nurse Practitioner Family; Visit Provider Student in an Organized Health Care Education/Training Program
PROC: (CPT 23472; principal; 2024-11-06 07:30)
DX: S46.212A Strain of muscle, fascia and tendon of other parts of biceps, left arm, initial encounter (principal); M75.102 Unspecified rotator cuff tear or rupture of left shoulder, not specified as traumatic; M12.812 Other specific arthropathies, not elsewhere classified, left shoulder; X58.XXXA Exposure to other specified factors, initial encounter; G89.18 Other acute postprocedural pain
CPT/HCPCS: 23472; C1713; 64415; 64450; 73030; 73200; J0131; J0665; J0666; J0690; J1100; J2371; J2405; J2704; J3010; J3373

== ENCOUNTER 2024-11-18 09:24 | Outpatient (CLI) | payer MEDICARE, SELFPAY ==
--- NOTE | 2024-11-18 09:00 | DI.RAD_ITS ---
Exam(s) XR SHOULDER LT COMPLETE 2+V EXAM: XR SHOULDER LT COMPLETE 2+V INDICATION: F/U LEFT RTSA. COMPARISON: CR XR SHOULDER LT COMPLETE 2+V from 11/06/[address] UPPER EXTREMITY LT WO from 11/06/2024 TECHNIQUE: 2D digital imaging was performed. Two views. FINDINGS: There is stable alignment of the reverse shoulder prosthesis. There are no abnormal surrounding bony lucencies. DATA REPOSITORY: RADIATION DOSE DELIVERED:
== END 2024-11-18 09:25 | disposition home or self-care (01) ==
LOC: DIORS 09:25
PROVIDERS: PCP Nurse Practitioner Family; Referring Provider Nurse Practitioner Family; Visit Provider Physician Assistant
DX: Z47.89 Encounter for other orthopedic aftercare (principal); M25.512 Pain in left shoulder
CPT/HCPCS: 99024; 73030

== ENCOUNTER → 2025-01-06 10:55 | Outpatient (BNVA) | payer MEDICARE, SELFPAY | PROVIDERS: PCP Nurse Practitioner Family; Referring Provider Nurse Practitioner Family; Visit Provider Student in an Organized Health Care Education/Training Program | DX: S46.212D Strain of muscle, fascia and tendon of other parts of biceps, left arm, subsequent encounter (principal); M12.812 Other specific arthropathies, not elsewhere classified, left shoulder; X58.XXXD Exposure to other specified factors, subsequent encounter | CPT/HCPCS: 99024 ==

== ENCOUNTER 2025-03-03 13:49 | Outpatient (CLI) | payer MEDICARE, SELFPAY ==
--- NOTE | 2025-03-03 12:45 | DI.RAD_ITS ---
Exam(s) XR SHOULDER LT COMPLETE 2+V EXAM: XR SHOULDER LT COMPLETE 2+V INDICATION: F/U LEFT RTSA. COMPARISON: CR XR SHOULDER LT COMPLETE 2+V from 11/18/2024 TECHNIQUE: 2D digital imaging was performed. Two views. FINDINGS: There is stable alignment of the shoulder prosthesis. There are no abnormal surrounding bony lucencies. DATA REPOSITORY: RADIATION DOSE DELIVERED:
== END 2025-03-03 13:50 | disposition home or self-care (01) ==
LOC: DIORS 13:49
PROVIDERS: PCP Nurse Practitioner Family; Referring Provider Nurse Practitioner Family; Visit Provider Student in an Organized Health Care Education/Training Program
DX: Z47.1 Aftercare following joint replacement surgery (principal); Z96.612 Presence of left artificial shoulder joint; M12.812 Other specific arthropathies, not elsewhere classified, left shoulder
CPT/HCPCS: 99213; 73030

== ENCOUNTER 2025-03-30 14:17 | Outpatient (CLI) | payer MEDICARE, SELFPAY ==
--- NOTE | 2025-03-30 10:15 | DI.RAD_ITS ---
Exam(s) XR KNEE RT 4V AP,LAT,MARY,PAT EXAM: XR KNEE RT 4V AP,LAT,MARY,PAT CLINICAL HISTORY: bilateral knee pian. TECHNIQUE: 2D digital imaging was performed. Three views. COMPARISON: CR XR KNEE LT 4V AP,LAT,MARY,PAT from 03/30/2025 FINDINGS: BONES: No acute fracture is present. No bony destructive lesion is seen. JOINTS: Th there is severe narrowing of the medial femoral tibial joint space with a [id number] appearance. There is periarticular spurring and mild varus angulation. There is also prominent spurring at the patellofemoral joint. No joint effusion is seen. SOFT TISSUE: Normal. IMPRESSION: Severe degenerative changes of the medial femoral tibial joint. DATA REPOSITORY: RADIATION DOSE DELIVERED:
--- NOTE | 2025-03-30 10:15 | DI.RAD_ITS ---
Exam(s) XR KNEE LT 4V AP,LAT,MARY,PAT EXAM: XR KNEE LT 4V AP,LAT,MARY,PAT CLINICAL HISTORY: bilateral knee pain. TECHNIQUE: 2D digital imaging was performed. Three views. COMPARISON: CR LEFT KNEE 3 VIEW COMPLETE from 02/20/2017 FINDINGS: BONES: No acute fracture is present. No bony destructive lesion is seen. JOINTS: There is severe narrowing of the medial femoral tibial joint space with a [id number] appearance. There is flattening of the medial femoral condyle and remodeling of the medial tibial plateau as well as prominent periarticular spurring. There is varus angulation at the knee with widening of the lateral joint space. There is severe spurring at the patellofemoral joint. There is a joint effusion containing a large suprapatellar loose body. There small loose bodies seen posterior to the lateral tibial plateau. SOFT TISSUE: Normal. IMPRESSION: End-stage degenerative changes. Joint effusion with large suprapatellar loose body. DATA REPOSITORY: RADIATION DOSE DELIVERED:
== END 2025-03-30 14:18 | disposition home or self-care (01) ==
LOC: DIORS 14:17
PROVIDERS: PCP Nurse Practitioner Family; Referring Provider Nurse Practitioner Family; Visit Provider Student in an Organized Health Care Education/Training Program
DX: M17.0 Bilateral primary osteoarthritis of knee (principal); M25.561 Pain in right knee; M25.562 Pain in left knee
CPT/HCPCS: 99213; 20610; J1010; 73564